=== PATIENT | male | born 1950 | race Caucasian/White ===

== ENCOUNTER 2016-10-02 18:43 | Emergency (ER) | payer OTHER ==
[2016-10-02] MEDS: APAP/HYDROCODONE 325/5 TAB PO ONE (19:20)
[2016-10-02] MEDS ORDERED: APAP/HYDROCODONE 325/5 TAB ONE (19:22)
[2016-10-02 19:34] VITALS: RESP 18
[2016-10-02 19:38] VITALS: TEMP 99.8
[2016-10-02 20:37] VITALS: O2SAT 98
[2016-10-02 20:38] VITALS: BP 140/82; PULSE 68
== END 2016-10-02 20:24 | disposition home or self-care (01) | DRG 563 ==
LOC: ED 18:43
DX: S52.022A Displaced fracture of olecranon process without intraarticular extension of left ulna, initial encounter for closed fracture (principal); W19.XXXA Unspecified fall, initial encounter
CPT/HCPCS: 73070; 99285

== ENCOUNTER 2017-06-07 20:28 | Emergency (ER) | payer OTHER ==
[2017-06-07 21:00] LABS: BASOPHILS % (AUTO) 1 % (0-3); EOSINOPHILS % (AUTO) 1 % (0-9); HEMATOCRIT 44 % (39-53); MEAN CORPUSCULAR HGB CONC 35.9 gm/dl (32.0-36.0); MEAN CORPUSCULAR VOLUME 97 fL (80-100); MONOCYTES % (AUTO) 6.2 % (0-12); NEUTROPHILS % (AUTO) 63.4 % (37-80)
[2017-06-07 21:27] LABS: NORMAL RBCS NORMAL RBCS
[2017-06-07 21:28] LABS: ALBUMIN 3.6 gm/dl (3.4-5.0); ALT 64 IU/L (14-63); CALCIUM 8.2 mg/dl (8.5-10.1); GLOM FILT RATE 88 mL/min (>60); MAGNESIUM 1.8 mg/dl (1.8-2.4); POTASSIUM 3.5 mMol/L (3.5-5.1); SODIUM 131 mMol/L (136-145); THYROID STIMULATING HORMONE 2.285 uIU/ml (0.358-3.740)
[2017-06-07 21:30] VITALS: RESP 18; TEMP 97
[2017-06-07 21:47] VITALS: O2SAT 100
[2017-06-07 21:48] VITALS: BP 154/95; PULSE 68
== END 2017-06-07 22:19 | disposition home or self-care (01) | DRG 310 ==
LOC: ED 20:28
DX: I49.8 Other specified cardiac arrhythmias (principal); I10 Essential (primary) hypertension; R51 Headache
CPT/HCPCS: 36415; 80053; 83735; 84100; 84443; 84484; 85025; 93005; 99284